=== PATIENT | male | born 1965 | race Hispanic/Latino ===

== ENCOUNTER 2020-12-16 19:12 | Emergency (ER) | payer OTHER ==
[2020-12-16 20:41] VITALS: BP 121/80
== END 2020-12-16 20:50 | disposition home or self-care (01) ==
LOC: EDH 19:12
DX: R05 Cough (principal); R09.81 Nasal congestion; Z20.822 Contact with and (suspected) exposure to COVID-19; F17.200 Nicotine dependence, unspecified, uncomplicated
CPT/HCPCS: 87635; 99283; C9803